=== PATIENT | female | born 1995 | race Caucasian/White ===

== ENCOUNTER 2019-09-22 16:25 | Inpatient (IN) | payer OTHER ==
[~2019-09-22] VITALS: Ht 170.2 cm; Wt 77.6 kg
[2019-09-22 18:30] VITALS: BP 120/68
[2019-09-22] MEDS ORDERED: ACETAMINOPHEN 325 MG TABLET PO PRN (19:30)
[2019-09-22] MEDS ORDERED: QUEtiapine FUMARATE 25 MG TABLET PO PRN (19:30)
[2019-09-22] MEDS: DOCUSATE SODIUM 100 MG CAPSULE PO SCH (21:00)
[2019-09-22] MEDS: SENNA 187 MG TABLET PO SCH (21:00)
[2019-09-22] MEDS: QUEtiapine FUMARATE 25 MG TABLET PO SCH (21:44)
[2019-09-22] MEDS: ENOXAPARIN SODIUM 100 MG/ML PF SYRINGE SQ SCH (21:44)
[2019-09-22] MEDS: TraMADol HCL 50 MG TABLET PO PRN (23:40)
[2019-09-22 23:47] VITALS: BP 113/66
[2019-09-23] MEDS: ACETAMINOPHEN 325 MG TABLET PO PRN (00:33)
[2019-09-23 07:45] VITALS: BP 101/43
[2019-09-23] MEDS: POLYETHYLENE GLYCOL 3350 17 GM PACKET PO SCH (09:01)
[2019-09-23] MEDS: TraMADol HCL 50 MG TABLET PO PRN ×2 (09:02→20:10)
[2019-09-23] MEDS: DOCUSATE SODIUM 100 MG CAPSULE PO SCH ×2 (09:02→20:22)
[2019-09-23] MEDS: ENOXAPARIN SODIUM 100 MG/ML PF SYRINGE SQ SCH ×2 (09:06→20:26)
[2019-09-23 10:46] LABS: BASOPHILS % (AUTO) 0.5 % (0.0-2.0); EOSINOPHILS % (AUTO) 1.6 % (1.0-6.0); HEMATOCRIT 33.5 % (36-46); LYMPHOCYTES # (AUTO) 1.3 K/uL (1.0-4.8); LYMPHOCYTES % (AUTO) 16.4 % (22.0-44.0); MEAN CORPUSCULAR HEMOGLOBIN 29.6 pg (26.0-34.0); MEAN CORPUSCULAR HGB CONC 32.8 G/dL (31.0-37.0); MEAN CORPUSCULAR VOLUME 90 fL (80-100); MONOCYTES # (AUTO) 0.6 K/uL (0.1-1.0); MONOCYTES % (AUTO) 7.6 % (2.0-9.0); NEUTROPHILS % (AUTO) 73.9 % (40.0-70.0); PLATELET COUNT (AUTO) 654 K/uL (150-450); RED BLOOD CELL COUNT(AUTO) 3.71 MIL/uL (4.00-5.20); RED CELL DISTRIBUTION WIDTH 13.3 % (11.5-14.5)
[2019-09-23 11:40] LABS: ALANINE AMINOTRANSFERASE 51 U/L (12-78); ALBUMIN 3.7 g/dL (3.4-5.0); ALKALINE PHOSPHATASE 181 U/L (46-116); ANION GAP 12 mmol/L (8-16); ASPARTATE AMINOTRANSFERASE 17 U/L (15-37); BILIRUBIN,TOTAL 0.3 mg/dL (0.1-1.0); CALCIUM, TOTAL 9.6 mg/dL (8.8-10.5); CARBON DIOXIDE 28 mmol/L (22-29); CHLORIDE 104 mmol/L (98-107); GLOMERULAR FILTR. RATE CALC > 60 mL/min (>60); GLUCOSE,RANDOM 98 mg/dL (70-110); SODIUM SERUM 144 mmol/L (136-145); TOTAL PROTEIN, SERUM 8.6 g/dL (6.4-8.2); UREA NITROGEN, BLOOD 15 mg/dL (7-18)
[2019-09-23 15:00] VITALS: BP 99/54
[2019-09-23] MEDS: SENNA 187 MG TABLET PO SCH (20:23)
[2019-09-23] MEDS: QUEtiapine FUMARATE 25 MG TABLET PO SCH (20:23)
[2019-09-24 04:00] VITALS: BP 112/53
[2019-09-24 07:15] VITALS: BP 100/61
[2019-09-24] MEDS: TraMADol HCL 50 MG TABLET PO PRN ×2 (09:00→23:32)
[2019-09-24] MEDS: POLYETHYLENE GLYCOL 3350 17 GM PACKET PO SCH (10:59)
[2019-09-24] MEDS: ENOXAPARIN SODIUM 100 MG/ML PF SYRINGE SQ SCH ×2 (10:59→19:34)
[2019-09-24] MEDS: DOCUSATE SODIUM 100 MG CAPSULE PO SCH ×2 (11:00→19:34)
[2019-09-24 17:00] VITALS: BP 100/63
[2019-09-24] MEDS: ACETAMINOPHEN 325 MG TABLET PO PRN (19:34)
[2019-09-24] MEDS: QUEtiapine FUMARATE 25 MG TABLET PO SCH (19:34)
[2019-09-24] MEDS: SENNA 187 MG TABLET PO SCH (19:40)
[2019-09-24 23:42] VITALS: BP 109/60
[2019-09-25] MEDS: POLYETHYLENE GLYCOL 3350 17 GM PACKET PO SCH (08:14)
[2019-09-25 08:15] VITALS: BP 104/56
[2019-09-25] MEDS: ENOXAPARIN SODIUM 100 MG/ML PF SYRINGE SQ SCH ×2 (08:17→20:35)
[2019-09-25] MEDS: DOCUSATE SODIUM 100 MG CAPSULE PO SCH ×2 (08:17→20:43)
[2019-09-25] MEDS: TraMADol HCL 50 MG TABLET PO PRN ×2 (08:17→21:04)
[2019-09-25 15:57] VITALS: BP 112/66
[2019-09-25] MEDS: QUEtiapine FUMARATE 25 MG TABLET PO SCH (20:34)
[2019-09-25] MEDS: SENNA 187 MG TABLET PO SCH (20:43)
[2019-09-26 05:02] VITALS: BP 102/58
[2019-09-26 07:40] VITALS: BP 108/56
[2019-09-26] MEDS: DOCUSATE SODIUM 100 MG CAPSULE PO SCH ×2 (08:25→21:03)
[2019-09-26] MEDS: POLYETHYLENE GLYCOL 3350 17 GM PACKET PO SCH (08:26)
[2019-09-26] MEDS: ENOXAPARIN SODIUM 100 MG/ML PF SYRINGE SQ SCH ×2 (08:26→21:03)
[2019-09-26 15:12] VITALS: BP 125/75
[2019-09-26] MEDS: SENNA 187 MG TABLET PO SCH (21:03)
[2019-09-26] MEDS: QUEtiapine FUMARATE 25 MG TABLET PO SCH (21:04)
[2019-09-27 00:13] VITALS: BP 115/56
[2019-09-27 07:40] VITALS: BP 118/67
[2019-09-27] MEDS: DOCUSATE SODIUM 100 MG CAPSULE PO SCH ×2 (08:30→19:30)
[2019-09-27] MEDS: POLYETHYLENE GLYCOL 3350 17 GM PACKET PO SCH (08:30)
[2019-09-27] MEDS: ENOXAPARIN SODIUM 100 MG/ML PF SYRINGE SQ SCH ×2 (08:30→19:31)
[2019-09-27 15:08] VITALS: BP 108/57
[2019-09-27] MEDS: SENNA 187 MG TABLET PO SCH (19:30)
[2019-09-27] MEDS: QUEtiapine FUMARATE 25 MG TABLET PO SCH (19:31)
[2019-09-28 03:25] VITALS: BP 98/54
[2019-09-28 07:19] VITALS: BP 118/65
[2019-09-28] MEDS: POLYETHYLENE GLYCOL 3350 17 GM PACKET PO SCH (09:00)
[2019-09-28] MEDS: ENOXAPARIN SODIUM 100 MG/ML PF SYRINGE SQ SCH ×2 (09:00→20:32)
[2019-09-28] MEDS: DOCUSATE SODIUM 100 MG CAPSULE PO SCH ×2 (09:44→20:32)
[2019-09-28 10:34] LABS: HEMATOCRIT 36.5 % (36-46); HEMOGLOBIN 12.2 g/dL (12.0-16.0); LYMPHOCYTES # (AUTO) 1.2 K/uL (1.0-4.8); LYMPHOCYTES % (AUTO) 17.4 % (22.0-44.0); MEAN CORPUSCULAR HEMOGLOBIN 30.1 pg (26.0-34.0); MEAN CORPUSCULAR HGB CONC 33.3 G/dL (31.0-37.0); MEAN CORPUSCULAR VOLUME 90 fL (80-100); MONOCYTES # (AUTO) 0.4 K/uL (0.1-1.0); MONOCYTES % (AUTO) 5.9 % (2.0-9.0); NEUTROPHILS # (AUTO) 5.1 K/uL (1.8-7.7); NEUTROPHILS % (AUTO) 74.7 % (40.0-70.0); PLATELET COUNT (AUTO) 595 K/uL (150-450); RED BLOOD CELL COUNT(AUTO) 4.05 MIL/uL (4.00-5.20); RED CELL DISTRIBUTION WIDTH 14.1 % (11.5-14.5)
[2019-09-28 15:29] VITALS: BP 107/59
[2019-09-28 15:48] LABS: APPEARANCE,URINE CLOUDY (CLEAR); BILIRUBIN,URINE NEGATIVE (NEGATIVE); GLUCOSE, URINE (UA) NEGATIVE (NEGATIVE); KETONES,URINE NEGATIVE (NEGATIVE); LEUKOCYTE ESTERASE ,URINE MODERATE (NEGATIVE); NITRATE,URINE NEGATIVE (NEGATIVE); OCCULT BLOOD,URINE NEGATIVE (NEGATIVE); PROTEIN,URINE NEGATIVE (NEGATIVE); UROBILINOGEN,URINE 0.2 mg/dL (<=1.0)
[2019-09-28 16:17] LABS: BACTERIA,URINE Few /HPF (None Seen); CALCIUM OXALATE CRYSTALS,UR Few /LPF (None Seen); RBC,URINE 0-2 /HPF (0-2); SQUAMOUS EPITHELIAL CELL,UR Few /LPF (None Seen)
[2019-09-28] MEDS: SENNA 187 MG TABLET PO SCH (20:33)
[2019-09-28] MEDS: QUEtiapine FUMARATE 25 MG TABLET PO SCH (20:33)
[2019-09-29 07:30] VITALS: BP 100/52
[2019-09-29] MEDS: DOCUSATE SODIUM 100 MG CAPSULE PO SCH ×2 (08:57→20:02)
[2019-09-29] MEDS: POLYETHYLENE GLYCOL 3350 17 GM PACKET PO SCH (09:00)
[2019-09-29] MEDS: ENOXAPARIN SODIUM 100 MG/ML PF SYRINGE SQ SCH ×2 (09:00→19:53)
[2019-09-29 16:23] VITALS: BP 105/58
[2019-09-29] MEDS: QUEtiapine FUMARATE 25 MG TABLET PO SCH (19:52)
[2019-09-29 20:00] VITALS: BP 124/71
[2019-09-29] MEDS: SENNA 187 MG TABLET PO SCH (20:03)
[2019-09-30 09:00] VITALS: BP 103/62
[2019-09-30] MEDS: ENOXAPARIN SODIUM 100 MG/ML PF SYRINGE SQ SCH ×2 (09:00→21:08)
[2019-09-30 15:20] VITALS: BP 101/57
[2019-09-30] MEDS: SENNA 187 MG TABLET PO SCH (21:07)
[2019-09-30] MEDS: MELATONIN 5 MG TABLET PO SCH (21:08)
[2019-09-30 21:33] VITALS: BP 109/64
[2019-10-01 08:28] VITALS: BP 102/59
[2019-10-01] MEDS: ENOXAPARIN SODIUM 100 MG/ML PF SYRINGE SQ SCH (09:01)
[2019-10-01] MEDS ORDERED: SENN8.6T90 PO (15:24)
[2019-10-01] MEDS ORDERED: MELA5TAB3 PO (15:24)
[2019-10-01 16:27] VITALS: BP 120/59
[2019-10-01] MEDS: SENNA 187 MG TABLET PO SCH (20:44)
[2019-10-01] MEDS: APIXABAN 5 MG TABLET PO SCH (20:44)
[2019-10-01] MEDS: MELATONIN 5 MG TABLET PO SCH (20:44)
[2019-10-01 23:00] VITALS: BP 107/64
[2019-10-02 08:17] VITALS: BP 112/63
[2019-10-02] MEDS: APIXABAN 5 MG TABLET PO SCH ×2 (08:23→20:53)
[2019-10-02 11:15] LABS: BASOPHILS % (AUTO) 0.6 % (0.0-2.0); EOSINOPHILS % (AUTO) 0.6 % (1.0-6.0); HEMATOCRIT 36.4 % (36-46); HEMOGLOBIN 12.4 g/dL (12.0-16.0); LYMPHOCYTES # (AUTO) 0.8 K/uL (1.0-4.8); LYMPHOCYTES % (AUTO) 17.5 % (22.0-44.0); MEAN CORPUSCULAR HEMOGLOBIN 30.8 pg (26.0-34.0); MEAN CORPUSCULAR HGB CONC 34.1 G/dL (31.0-37.0); MEAN CORPUSCULAR VOLUME 91 fL (80-100); MONOCYTES # (AUTO) 0.3 K/uL (0.1-1.0); MONOCYTES % (AUTO) 5.5 % (2.0-9.0); NEUTROPHILS # (AUTO) 3.6 K/uL (1.8-7.7); NEUTROPHILS % (AUTO) 75.8 % (40.0-70.0); PLATELET COUNT (AUTO) 482 K/uL (150-450); RED BLOOD CELL COUNT(AUTO) 4.02 MIL/uL (4.00-5.20); RED CELL DISTRIBUTION WIDTH 13.9 % (11.5-14.5)
[2019-10-02 11:37] LABS: ANION GAP 8 mmol/L (8-16); CALCIUM, TOTAL 9.6 mg/dL (8.8-10.5); CARBON DIOXIDE 30 mmol/L (22-29); CHLORIDE 104 mmol/L (98-107); CREATININE 0.78 mg/dL (0.60-1.30); GLOMERULAR FILTR. RATE CALC > 60 mL/min (>60); GLUCOSE,RANDOM 116 mg/dL (70-110); SODIUM SERUM 142 mmol/L (136-145); UREA NITROGEN, BLOOD 8 mg/dL (7-18)
[2019-10-02 16:49] VITALS: BP 111/78
[2019-10-02] MEDS: SENNA 187 MG TABLET PO SCH (20:53)
[2019-10-02] MEDS: MELATONIN 5 MG TABLET PO SCH (20:53)
[2019-10-02 23:40] VITALS: BP 113/66
[2019-10-03] MEDS ORDERED: APIX5TAB PO (04:47)
[2019-10-03 10:00] VITALS: BP 106/60
[2019-10-03] MEDS ORDERED: TRAM50TA4 PO (10:42)
[2019-10-03] MEDS: APIXABAN 5 MG TABLET PO SCH (11:50)
== END 2019-10-03 12:20 | disposition home health service (06) | DRG 964 ==
LOC: 2WR 18:05
PROVIDERS: ADMIT Physical Medicine & Rehabilitation; ATTEND Physical Medicine & Rehabilitation
DX: S06.2X0A Diffuse traumatic brain injury without loss of consciousness, initial encounter (principal); S32.591A Other specified fracture of right pubis, initial encounter for closed fracture; G81.94 Hemiplegia, unspecified affecting left nondominant side; Z81.8 Family history of other mental and behavioral disorders; V29.88XA Motorcycle rider (driver) (passenger) injured in other specified transport accidents, initial encounter; Y93.89 Activity, other specified; Y92.89 Other specified places as the place of occurrence of the external cause; Y99.8 Other external cause status; R40.2430 Glasgow coma scale score 3-8, unspecified time; R60.9 Edema, unspecified; D64.9 Anemia, unspecified; R13.10 Dysphagia, unspecified; S42.001A Fracture of unspecified part of right clavicle, initial encounter for closed fracture; R35.1 Nocturia
CPT/HCPCS: 87081; 87086; 92507; 92523; 93970; 97110; 97112; 97116; 97163; 97166; 97530; 97535; 99366; J1650